=== PATIENT | male | born 1965 | race Caucasian/White ===

== ENCOUNTER 2017-07-21 10:42 | Emergency (ER) | payer OTHER ==
[~2017-07-21] VITALS: Ht 180.3 cm; Wt 90.0 kg
[~2017-07-21 10:42] MED LIST: METP PO
[2017-07-21 11:02] VITALS: Ht 180.3 cm; Wt 90.0 kg
[2017-07-21 12:05] VITALS: BP 135/87
== END 2017-07-21 12:05 | disposition home or self-care (01) ==
LOC: ED 10:42
DX: H10.89 Other conjunctivitis (principal)